=== PATIENT | male | born 1995 | race Hispanic/Latino ===

== ENCOUNTER 2018-09-23 15:36 | Emergency (ER) | payer MEDICAID ==
[2018-09-23] MEDS ORDERED: KETOROLAC TROMETHAMINE 30MG/ML ONE (16:04)
[2018-09-23] MEDS ORDERED: ONDANSETRON HCL 4 MG/2 ML VIAL ONE (16:04)
[2018-09-23 16:45] LABS: BASOPHILS % (AUTO) 0.4 % (0.0-5.0); EOSINOPHILS % (AUTO) 0.4 % (0.0-8.0); HEMATOCRIT 47.9 % (42-54); LYMPHOCYTES % (AUTO) 12.1 % (21.0-51.0); MEAN CORPUSCULAR HEMOGLOBIN 30.7 pg (27.0-33.0); MEAN CORPUSCULAR HGB CONC 34.3 g/dL (32.0-36.0); MEAN CORPUSCULAR VOLUME 89.6 fL (79-99); MONOCYTES % (AUTO) 11.2 % (3.0-13.0); NEUTROPHILS % (AUTO) 75.9 % (40.0-77.0); PLATELET COUNT (AUTO) 174 K/uL (130-400); RED BLOOD CELL COUNT(AUTO) 5.35 MIL/uL (4.50-6.20); RED CELL DISTRIBUTION WIDTH 13.3 % (11.0-15.5); WHITE BLOOD COUNT (AUTO) 9.2 K/uL (4.8-10.8)
[2018-09-23 16:52] LABS: APPEARANCE,URINE Clear (CLEAR); BILIRUBIN,URINE Negative (NEGATIVE); COLOR,URINE Yellow (YELLOW); GLUCOSE, URINE (UA) Negative (NEGATIVE); KETONES,URINE Negative (NEGATIVE); LEUKOCYTE ESTERASE ,URINE Negative (NEGATIVE); NITRATE,URINE Negative (NEGATIVE); OCCULT BLOOD,URINE Negative (NEGATIVE); PH,URINE 6.5 (5.0-8.0); PROTEIN,URINE Negative (NEGATIVE); UROBILINOGEN,URINE 0.2 mg/dL (0.2-1.0)
[2018-09-23 17:03] LABS: CREATININE 0.8 mg/dL (0.5-1.5); POTASSIUM 3.6 mmol/L (3.5-5.1)
[2018-09-23 17:07] LABS: ALBUMIN 4.2 g/dL (3.5-5.0); BILIRUBIN,TOTAL 0.3 mg/dL (0.2-1.0); TOTAL PROTEIN, SERUM 8.4 g/dL (6.0-8.3)
[2018-09-23] MEDS ORDERED: MAG HYDROX/AL HYDROX/SIMETH ES 30 ML SUSP UDCUP ONE (17:15)
[2018-09-23] MEDS ORDERED: LIDOCAINE HCL 2% VISCOUS 15 ML UDCUP ONE (17:15)
[2018-09-23] MEDS ORDERED: FAMOTIDINE/PF 20 MG/2 ML VIAL IV ONE (17:15)
== END 2018-09-23 17:53 | disposition home or self-care (01) ==
LOC: EDH 15:36
DX: R10.13 Epigastric pain (principal); R11.0 Nausea; R50.9 Fever, unspecified; Z72.0 Tobacco use
CPT/HCPCS: 36415; 76705; 80053; 81003; 83690; 85025; 96374; 96375; 99284; J1885; J2405; J3490

== ENCOUNTER 2019-01-31 21:10 | Emergency (ER) | payer MEDICAID ==
[2019-01-31] MEDS ORDERED: ONDANSETRON ODT 4 MG TAB ONE (21:29)
[2019-01-31] MEDS ORDERED: DICYCLOMINE HCL 10 MG/ML 2ML AMP IM ONE (21:29)
[2019-01-31 21:34] LABS: BASOPHILS % (AUTO) 0.9 % (0.0-5.0); EOSINOPHILS % (AUTO) 2.5 % (0.0-8.0); HEMATOCRIT 44.4 % (42-54); LYMPHOCYTES % (AUTO) 35.7 % (21.0-51.0); MEAN CORPUSCULAR HEMOGLOBIN 30.5 pg (27.0-33.0); MEAN CORPUSCULAR HGB CONC 33.8 g/dL (32.0-36.0); MEAN CORPUSCULAR VOLUME 90.2 fL (79-99); MONOCYTES % (AUTO) 7.9 % (3.0-13.0); NUCLEATED RED BLOOD CELLS 0.1 % (0.0-0.19); PLATELET COUNT (AUTO) 227 K/uL (130-400); RED BLOOD CELL COUNT(AUTO) 4.92 MIL/uL (4.50-6.20); RED CELL DISTRIBUTION WIDTH 13.1 % (11.0-15.5); WHITE BLOOD COUNT (AUTO) 11.2 K/uL (4.8-10.8)
[2019-01-31 21:50] LABS: APPEARANCE,URINE Clear (CLEAR); BILIRUBIN,URINE Negative (NEGATIVE); COLOR,URINE Yellow (YELLOW); GLUCOSE, URINE (UA) Negative (NEGATIVE); KETONES,URINE Negative (NEGATIVE); LEUKOCYTE ESTERASE ,URINE Negative (NEGATIVE); NITRATE,URINE Negative (NEGATIVE); OCCULT BLOOD,URINE Negative (NEGATIVE); PROTEIN,URINE Negative (NEGATIVE); UROBILINOGEN,URINE 0.2 mg/dL (0.2-1.0)
[2019-01-31 21:57] LABS: CREATININE 0.9 mg/dL (0.5-1.5); POTASSIUM 3.7 mmol/L (3.5-5.1)
[2019-01-31 22:02] LABS: ALBUMIN 4.1 g/dL (3.5-5.0); BILIRUBIN,TOTAL 0.3 mg/dL (0.2-1.0); TOTAL PROTEIN, SERUM 7.7 g/dL (6.0-8.3)
== END 2019-01-31 22:20 | disposition home or self-care (01) ==
LOC: EDH 21:10
DX: R10.10 Upper abdominal pain, unspecified (principal)
CPT/HCPCS: 36415; 80053; 81003; 83690; 85025; 96372; 99284; J0500

== ENCOUNTER 2023-11-22 20:41 | Emergency (ER) | payer MEDICAID ==
[~2023-11-22] VITALS: Ht 175.3 cm; Wt 137.4 kg
[2023-11-22 21:11] LABS: APPEARANCE,URINE CLEAR (CLEAR); BILIRUBIN,URINE NEGATIVE (NEGATIVE); COLOR,URINE LIGHT-YELLOW (YELLOW); GLUCOSE, URINE (UA) NEGATIVE (NEGATIVE); KETONES,URINE NEGATIVE (NEGATIVE); LEUKOCYTE ESTERASE ,URINE NEGATIVE Leu/uL (NEGATIVE); NITRATE,URINE NEGATIVE (NEGATIVE); OCCULT BLOOD,URINE NEGATIVE (NEGATIVE); PH,URINE 6.5 (5.0-8.0); PROTEIN,URINE NEGATIVE (NEGATIVE); UROBILINOGEN,URINE 0.2 mg/dL (0.2-1.0)
[2023-11-22 21:12] LABS: BASOPHILS % (AUTO) 0.9 % (0.0-5.0); EOSINOPHILS # (AUTO) 0.38 K/uL (0.00-0.70); EOSINOPHILS % (AUTO) 3.3 % (0.0-8.0); HEMATOCRIT 44.9 % (42-54); IMMATURE GRANULOCYTE ABSOLUTE 0.05 K/uL (0-1); LYMPHOCYTES # (AUTO) 4.1 K/uL (1.0-4.8); LYMPHOCYTES % (AUTO) 35.5 % (21.0-51.0); MEAN CORPUSCULAR HEMOGLOBIN 30.4 pg (27.0-33.0); MEAN CORPUSCULAR HGB CONC 34.3 g/dL (32.0-36.0); MEAN CORPUSCULAR VOLUME 88.7 fL (79-99); MONOCYTES # (AUTO) 1.4 K/uL (0.1-1.0); MONOCYTES % (AUTO) 12.1 % (3.0-13.0); NEUTROPHILS # (AUTO) 5.5 K/uL (1.8-7.7); NEUTROPHILS % (AUTO) 47.8 % (40.0-77.0); PLATELET COUNT (AUTO) 240 K/uL (130-400); RED BLOOD CELL COUNT(AUTO) 5.06 MIL/uL (4.50-6.20); RED CELL DISTRIBUTION WIDTH 12.3 % (11.0-15.5); WHITE BLOOD COUNT (AUTO) 11.5 K/uL (4.8-10.8)
[2023-11-22 21:12] LABS: ADD UA MICROSCOPIC YES
[2023-11-22 21:13] LABS: RBC,URINE 0-1 /HPF (0-1); WBC,URINE 0-1 /HPF (0-1)
[2023-11-22 21:21] LABS: CREATININE 0.9 mg/dL (0.5-1.3)
[2023-11-22 21:26] LABS: ALBUMIN 3.6 g/dL (3.5-5.0); BILIRUBIN,TOTAL 0.2 mg/dL (0.2-1.0); TOTAL PROTEIN, SERUM 7.5 g/dL (6.0-8.3)
[2023-11-22] MEDS: PANTOPRAZOLE 40 MG/VIAL IVP ONE (21:33)
[2023-11-22] MEDS: 0.9%NACL 1000ML 1,000 ML IV ONE (21:34)
[2023-11-22] MEDS ORDERED: PANT40TA55 PO (22:32)
[2023-11-22 22:45] VITALS: BP 132/88; PULSE 72; RESP 16; O2SAT 100
[2023-11-22] MEDS: LIDOCAINE HCL 2% VISCOUS 15 ML UDCUP PO ONE (22:48)
[2023-11-22] MEDS: MAG/ALUM/SIMETH 30 ML UDCUP PO ONE (22:48)
[2023-11-22] MEDS: DICYCLOMINE HCL 10 MG/5 ML ML PO ONE (22:48)
[2023-11-25] MEDS ORDERED: DICY20TA2 PO (01:50)
[2023-11-25] MEDS ORDERED: SIME180C70 PO (01:50)
== END 2023-11-22 22:50 | disposition home or self-care (01) ==
LOC: EDH 20:41
DX: K29.50 Unspecified chronic gastritis without bleeding (principal)
CPT/HCPCS: 99284; 96374; 96361; 80053; 83690; 85025; 81001; 36415; J7030; S0164; C9113

== ENCOUNTER 2024-07-12 14:04 | Emergency (ER) | payer MEDICAID ==
[~2024-07-12] VITALS: Ht 170.2 cm; Wt 134.7 kg
[~2024-07-12 14:04] MED LIST: DICY20TA2 PO; PANT40TA55 PO; SIME180C61 PO
[2024-07-12 14:43] LABS: SARS-CoV-2, RNA, NAAT NEGATIVE SARS CoV-2 (NEGATIVE)
[2024-07-12 14:46] LABS: INFLUENZA TYPE B Negative For Type B (NEGATIVE)
--- NOTE | 2024-07-12 14:46 | ERN ---
ED Note History of Present Illness Stated Complaint: DIZZY Chief Complaint: Flu Symptoms Time Seen by MD: 14:13 Time Seen by Midlevel: 14:13 Dictation: 28-year-old male presents to the emergency department due to report of having a fever, chills, body aches, runny nose and a nonproductive cough that began 2 days ago. He states that he has had a fever as high as 103 F. Currently, he denies having had contact with anybody with similar symptoms. Upon initial evaluation, the patient presents in no acute respiratory distress. Allergies: Coded Allergies: No Known Allergies (Unverified Allergy, Unknown, 11/22/23) Emergency Care CUT OFF [facility] [facility]: None Home Meds Active Scripts Albuterol Sulfate (Ventolin Hfa/Proventil Hfa/Proair Hfa) 90 Mcg Puff, 2 PUFF IH Q4H PRN for SHORTNESS OF BREATH/WHEEZING for 30 Days, #1 INH 0 Refills Prov:EDDIE HUITRON [employer] 07/12/24 Oseltamivir Phosphate (Tamiflu) 75 Mg Cap, 75 MG PO BID for 7 Days, #14 CAP Prov:EDDIE HUITRONP 07/12/24 Simethicone (Simethicone) 180 Mg Capsule, 180 MG PO AD, #15 CAP 1 capsule by mouth every 6-8 hours as needed for gas pain Prov:GUERDA OH NP 11/25/23 Dicyclomine HCl (Bentyl) 20 Mg Tab, 20 MG PO QID for abd cramps, #30 TAB Prov:GUERDA OH NP 11/25/23 Pantoprazole Sodium (Protonix) 40 Mg Ectab, 40 MG PO DAILY for 30 Days, #30 TAB.EC Prov:AMARI BARROW MD 11/22/23 Past Medical History Past Medical History: Anxiety, Bipolar, Depression Surgical History: None Social History: Lives with family RN Note Reviewed/Agreed w/PFSH: Yes Review of System Dictation Constitutional: Fever, body aches, chills ENT: Runny nose Respiratory: Nonproductive cough Initial Vital Sign VS Vital Signs Date Time Temp Pulse Resp B/P (MAP) Pulse Ox O2 Delivery O2 Flow Rate FiO2 07/12/24 14:07 99.9 103 20 152/100 99 Room Air 07/12/24 15:27 0 21 Physical Exam Dictation General: awake, alert, NAD Head/Face: Normocephalic, atraumatic Eyes: PERRL, EOMI ENT: Oral mucosa moist, bilateral nasal congestion Neck: Trachea midline, supple Cardiovascular: RRR, no edema Respiratory: Symmetrical, non-labored Abdomen: Soft, non-tender, non-distended, no guarding. Skin: Warm, dry, good turgor, no rash MS/Extremity: Pulses equal, no cyanosis, neurovascular intact, FROM Neuro: COAx4, GCS 15, steady gait, Psych: Normal behavior, mood, and affect normal Results (Laboratory/Radiology) Laboratory/Radiology Laboratory Tests Test 07/12/24 14:15 Influenza Type A Antigen Positive For Type A Influenza Type B Antigen Negative For Type B SARS-CoV-2, RNA, NAAT NEGATIVE SARS CoV-2 Labs Reviewed?: Yes ED Course ED Course Orders Procedure Category Date Status Time Covid Rna Naat LAB 07/12/24 Complete 14:11 Influenza Type A & B, LAB 07/12/24 Complete Rapid 14:11 Vital Signs Date Time Temp Pulse Resp B/P (MAP) Pulse Ox O2 Delivery O2 Flow Rate FiO2 07/12/24 15:27 99.9 103 16 150/100 98 Room Air* 0 21 07/12/24 14:07 99.9 103 20 152/100 99 Room Air Medical Decision Making MDM MDM: Differential diagnosis: Influenza a, influenza B, viral illness. Rationale: Tests considered and ordered secondary to shared decision making include: Previous outside records reviewed: Old ER visits. Risk of complication and/or morbidity or mortality of patient management: None Medications-Per medication reconciliation Need for hospitalization: Patient does not meet criteria for hospitalization. Need for emergency major/minor surgery: No There are no social concerns with this patient. Prescription drug management Prescriptions will include symptomatic care Patient's prior external medical records from other ER visits were reviewed by me as indicated. Prior testing and results from previous visits were reviewed. Prior tests were taken into account with medical decision making and resource utilization, independent historian/historians were used to obtain complete medical history. I independently interpreted the test that were performed, results were reviewed by me and considered findings on radiology if ordered. Medical management and examination interpretation discussions were had by me with other qualified healthcare professionals as indicated for the patient's care. DX & DISP Disposition: Discharge Departure Impression: Primary Impression: Influenza A Condition: Stable Scripts Albuterol Sulfate (Ventolin Hfa/Proventil Hfa/Proair Hfa) 90 Mcg Puff 2 PUFF IH Q4H PRN for SHORTNESS OF BREATH/WHEEZING for 30 Days, #1 INH 0 Refills Prov: EDDIE HUITRON 07/12/24 Oseltamivir Phosphate (Tamiflu) 75 Mg Cap 75 MG PO BID for 7 Days, #14 CAP Prov: EDDIE HUITRON 07/12/24 Referrals: NIDA CONNELLY MD (PCP) I performed a substantive portion of the visit. I have reviewed and personally made and approve the management plan that is documented in the notes by myself with DIALLO/resident. I acknowledged full responsibility for the patient's management plan. EDDIE HUITRON Jul 12, 2024 14:46 TANIA DO DO Jul 13, 2024 07:54
[2024-07-12 15:21] LABS: INFLUENZA TYPE A Positive For Type A (NEGATIVE)
--- NOTE | 2024-07-12 15:21 | NUR ---
FLU A +, ERMD MADE AWARE
[2024-07-12 15:27] VITALS: BP 150/100; PULSE 103; RESP 16; TEMP 99.9; O2SAT 98
[2024-07-12] MEDS ORDERED: ALBUHFA IH (15:29)
[2024-07-12] MEDS ORDERED: OSEL75 PO (15:29)
== END 2024-07-12 15:38 | disposition home or self-care (01) ==
LOC: EDH 14:04
DX: J10.1 Influenza due to other identified influenza virus with other respiratory manifestations (principal); F31.9 Bipolar disorder, unspecified; F41.9 Anxiety disorder, unspecified; Z20.822 Contact with and (suspected) exposure to COVID-19; Z79.899 Other long term (current) drug therapy
CPT/HCPCS: 87635; 87804; 99283